=== PATIENT | female | born 1955 | race African-American/Black ===

== ENCOUNTER 2018-02-14 15:03 | Emergency (ER) | payer MEDICAID ==
[~2018-02-14] VITALS: Ht 172.7 cm; Wt 89.0 kg
[2018-02-14] MEDS ORDERED: LORAZEPAM 2MG/ML CPJ IM STA (16:04)
[2018-02-15 00:08] VITALS: BP 132/80
== END 2018-02-15 00:09 | disposition home or self-care (01) ==
LOC: ER 15:03
DX: F16.188 Hallucinogen abuse with other hallucinogen-induced disorder (principal); F22 Delusional disorders; F91.8 Other conduct disorders; F12.10 Cannabis abuse, uncomplicated
CPT/HCPCS: 99283